=== PATIENT | male | born 1955 | race Caucasian/White ===

== ENCOUNTER 2020-12-12 12:58 | Outpatient (CLI) | payer OTHER | END 2020-12-12 12:59 | disposition home or self-care (01) | LOC: DTY/OP 12:58 | PROVIDERS: ATTEND Surgery | DX: E66.01 Morbid (severe) obesity due to excess calories (principal) | CPT/HCPCS: 97802 ==

== ENCOUNTER 2021-03-01 13:15 | Inpatient (IN) | payer MEDICARE, BC ==
[2021-03-03 15:32] VITALS: BMI 42.5
[2021-03-06] MEDS ORDERED: Heparin 5,000 UNITS/ML VIAL ONE (09:20)
[2021-03-06] MEDS ORDERED: Fentanyl 100 MCG/2 ML VIAL ONE ×3 (10:43→14:11)
[2021-03-06] MEDS ORDERED: Lidocaine 1% w/Epinephrine 1:100K 20 ML VIAL ONE (10:47)
[2021-03-06] MEDS ORDERED: Bupivacaine 0.25% HCL 30 ML VIAL ONE (10:47)
[2021-03-06] MEDS ORDERED: Lidocaine 1% PF 5 ML VIAL ONE (12:11)
[2021-03-06] MEDS ORDERED: Ondansetron PF 4 MG/2 ML Vial ONE (12:11)
[2021-03-06] MEDS ORDERED: PROPOFOL 200 MG/20 ML VIAL ONE (12:11)
[2021-03-06] MEDS ORDERED: Succinylcholine 200 MG/10 ml SYRINGE FS ONE (12:11)
[2021-03-06] MEDS ORDERED: Dexamethasone 20 MG/5 ML VIAL ONE (12:11)
[2021-03-06] MEDS ORDERED: Glycopyrrolate 0.2 MG/ML 5 ML SYRINGE ONE (12:11)
[2021-03-06] MEDS ORDERED: Rocuronium Bromide 10 MG/ML (10ML VIAL) ONE (12:11)
[2021-03-06] MEDS ORDERED: Promethazine HCl 25 MG/ML VIAL IM PRN ×3 (13:25→15:10)
[2021-03-06] MEDS ORDERED: Promethazine HCl 25 MG/ML VIAL SLOW IVP PRN (13:25)
[2021-03-06] MEDS ORDERED: Ondansetron HCl/PF 4 MG/2 ML Vial IVP PRN (13:25)
[2021-03-06] MEDS ORDERED: Dextrose 50% Abboject 50 ML SYRINGE SLOW IVP PRN (14:02)
[2021-03-06] MEDS ORDERED: diphenhydrAMINE 50 MG/ML VIAL IVP PRN ×2 (14:02→15:10)
[2021-03-06] MEDS ORDERED: Hydrocodone-Acetamin 15 ML UDCUP PO PRN (14:02)
[2021-03-06] MEDS ORDERED: Dextrose 5% in Water 1,000 ML IV PRN (14:02)
[2021-03-06] MEDS ORDERED: hydrALAZINE 20 MG/ML VIAL SLOW IVP PRN (14:02)
[2021-03-06] MEDS ORDERED: HumaLOG 300 UNITS/3 ML VIAL SC PRN (14:02)
[2021-03-06] MEDS ORDERED: Ondansetron PF 4 MG/2 ML Vial IVP PRN ×2 (14:02→15:10)
[2021-03-06] MEDS ORDERED: diphenhydrAMINE 25 MG CAP PO PRN (15:10)
[2021-03-06] MEDS ORDERED: diphenhydrAMINE 50 MG/ML VIAL IM PRN (15:10)
[2021-03-06] MEDS ORDERED: Naloxone HCl 0.4 mg/ml Vial IV PRN (15:10)
[2021-03-06] MEDS ORDERED: fentaNYL Citrate/PF 2,000 MCG in Sodium Chloride 0.9% 60 ML IV PRN (15:10)
[2021-03-06] MEDS ORDERED: Zolpidem Tartrate 5 MG TAB PO PRN (15:10)
[2021-03-06] MEDS ORDERED: Communication Order-Pharmacy FS SCH (15:15)
[2021-03-06] MEDS: Sodium Chloride 0.9% 1,000 ML IV SCH ×2 (17:21→20:53)
[2021-03-06] MEDS ORDERED: Enoxaparin Sodium 40 MG/0.4 ML SYRINGE SC SCH (21:00)
[2021-03-07 06:37] LABS: #Lymphocytes 1.1 thou/uL (1.20-3.40); #Monocytes 1.2 thou/uL (0.11-0.59); #Neutrophils 12.8 thou/uL (1.40-6.50); %Basophils 0.2 % (0.0-1.0); %Eosinophils 0.1 % (0.0-10.0); %Lymphocytes 7.5 % (21.0-51.0); %Monocytes 7.7 % (0.0-10.0); %Neutrophils 84.5 % (42.0-75.0); Hemoglobin 14.2 g/dL (14.0-18.0); Mean Corpuscular HGB CONC 31.6 g/dL (32.0-36.0); Mean Corpuscular Hemoglobin 28.9 pg (27.0-31.0); Mean Corpuscular Volume 91.6 fL (78.0-98.0); Mean Platelet Volume 6.8 fL (7.4-10.4); Platelet Count 335 thou/uL (130-400); RBC Distribution Width 12.9 % (11.5-14.5); Red Blood Cell (RBC) Count 4.91 mill/uL (4.70-6.10); White Blood Cell (WBC) Count 15.2 thou/uL (4.8-10.8)
[2021-03-07 06:54] LABS: Anion Gap 12 mmol/L (10-20); BUN (Urea Nitrogen) 17 mg/dL (8.4-25.7); Calc. Creatinine Clearance 155 mL/min (70-130); Calcium 9.4 mg/dL (7.8-10.44); Carbon Dioxide 24 mmol/L (23-31); Chloride 103 mmol/L (98-107); Glucose 139 mg/dL (80-115); Potassium 4.3 mmol/L (3.5-5.1); Sodium 135 mmol/L (136-145)
[2021-03-07] MEDS: Sodium Chloride 0.9% 1,000 ML IV SCH ×2 (07:24→11:29)
[2021-03-07] MEDS ORDERED: Pantoprazole 40 MG VIAL IVP SCH (09:00)
[2021-03-07] MEDS ORDERED: Lisinopril 20 MG TAB PO SCH (09:00)
[2021-03-07] MEDS ORDERED: Hydrocodone-Acetamin 15 ML UDCUP PO PRN (10:02)
[2021-03-07 11:56] VITALS: BP 116/71; TEMP 98.3
== END 2021-03-07 12:15 | disposition home or self-care (01) | DRG 621 ==
LOC: SURG A 03-06 09:07
PROVIDERS: ADMIT Surgery; ATTEND Surgery
PROC: 0DB64Z3 Excision of Stomach, Percutaneous Endoscopic Approach, Vertical (ICD-10-PCS; principal; 2021-03-06)
DX: E66.01 Morbid (severe) obesity due to excess calories (principal); Z68.41 Body mass index [BMI] 40.0-44.9, adult; G47.30 Sleep apnea, unspecified; E78.2 Mixed hyperlipidemia; Z79.84 Long term (current) use of oral hypoglycemic drugs; N18.31 Chronic kidney disease, stage 3a; I12.9 Hypertensive chronic kidney disease with stage 1 through stage 4 chronic kidney disease, or unspecified chronic kidney disease; E11.22 Type 2 diabetes mellitus with diabetic chronic kidney disease; N32.81 Overactive bladder; Z82.3 Family history of stroke; Z80.8 Family history of malignant neoplasm of other organs or systems; Z82.49 Family history of ischemic heart disease and other diseases of the circulatory system; Z88.8 Allergy status to other drugs, medicaments and biological substances
CPT/HCPCS: 36415; 36416; 80048; 85025; 88307; 90471; 90732; C9113; G0009; J0690; J1100; J1644; J1650; J2405; J2704; J3010; S0020

== ENCOUNTER 2021-03-02 13:17 | Outpatient (CLI) | payer MEDICARE, BC ==
[2021-03-02 16:09] LABS: ALT (SGPT) 31 U/L (8-55); AST (SGOT) 25 U/L (5-34); Albumin 4.2 g/dL (3.4-4.8); Alkaline Phosphatase 63 U/L (40-110); Anion Gap 15 mmol/L (10-20); BUN (Urea Nitrogen) 21 mg/dL (8.4-25.7); Bilirubin, Total 0.3 mg/dL (0.2-1.2); Calc. Creatinine Clearance 0 mL/min (70-130); Calcium 10.1 mg/dL (7.8-10.44); Carbon Dioxide 25 mmol/L (23-31); Chloride 100 mmol/L (98-107); Globulin 3.6 g/dL (2.4-3.5); Glucose 78 mg/dL (80-115); Potassium 4.4 mmol/L (3.5-5.1); Protein, Total 7.8 g/dL (5.8-8.1); Sodium 136 mmol/L (136-145)
[2021-03-02 16:24] LABS: #Basophils 0.1 10x3/uL (0.0-0.2); #Eosinphils 0.5 10x3/uL (0.0-0.5); #Monocytes 0.9 10x3/uL (0.0-1.1); #Neutrophils 6.7 10x3/uL (1.5-8.4); %Basophils 0.8 % (0.0-2.0); %Eosinophils 4.3 % (0.0-6.0); %Lymphocytes 22.5 % (18.0-47.0); %Monocytes 8.8 % (0.0-10.0); %Neutrophils 63.1 % (40.0-75.0); Hemoglobin 15.5 g/dL (13.5-17.5); Mean Corpuscular HGB CONC 32.5 g/dL (32.0-36.0); Mean Corpuscular Hemoglobin 29.3 pg (27.0-33.0); Mean Corpuscular Volume 90.2 fl (81.2-95.1); Mean Platelet Volume 9.6 fl (7.4-10.4); Platelet Count 373 10x3/uL (150-450); RBC Distribution Width 13.9 % (11.5-14.5); Red Blood Cell (RBC) Count 5.29 10x6/uL (4.32-5.72); White Blood Cell (WBC) Count 10.6 10x3/uL (3.5-10.5)
[2021-03-02 20:42] LABS: Hemoglobin A1c 7.3 % (4.0-6.0)
[2021-03-03 01:47] LABS: SARS-CoV-2 PCR by NAA Not Detected (NotDetected)
== END 2021-03-02 13:18 | disposition home or self-care (01) ==
LOC: LABBT 13:17
PROVIDERS: ATTEND Surgery
DX: Z01.818 Encounter for other preprocedural examination (principal); G47.33 Obstructive sleep apnea (adult) (pediatric); E78.5 Hyperlipidemia, unspecified; I10 Essential (primary) hypertension; E11.9 Type 2 diabetes mellitus without complications; Z20.822 Contact with and (suspected) exposure to COVID-19
CPT/HCPCS: 71046; 80053; 83036; 85025; 93005; U0003; U0005; 87635; 93010